=== PATIENT | female | born 1975 | race Caucasian/White ===

== ENCOUNTER 2019-11-12 09:26 | Day surgery (SDC) | payer MEDICARE ==
--- NOTE | 2019-11-07 11:11 | RADIOLOGY REPORT (SQ) ---
EXAM DESCRIPTION: CHEST PA/LATERAL IMAGES COMPLETED DATE/TIME: 11/07/2019 11:01 am REASON FOR STUDY: PRE OP COMPARISON: 03/05/2007 EXAM PARAMETERS: NUMBER OF VIEWS: two views TECHNIQUE: Digital Frontal and Lateral radiographic views of the chest acquired. RADIATION DOSE: NA LIMITATIONS: none FINDINGS: LUNGS AND PLEURA: No opacities, masses or pneumothorax. No pleural effusion. MEDIASTINUM AND HILAR STRUCTURES: No masses or contour abnormalities. HEART AND VASCULAR STRUCTURES: Heart normal size. No evidence for failure. BONES: No acute findings. HARDWARE: None in the chest. OTHER: No other significant finding. IMPRESSION: NO SIGNIFICANT RADIOGRAPHIC FINDING IN THE CHEST. TECHNICAL DOCUMENTATION: JOB ID: [id number] 2010 [employer]- All Rights Reserved Reading location - IP/workstation name: [email or web address]
[2019-11-07 11:13] LABS: HEMATOCRIT 46.4 % (36.0-47.0); HEMOGLOBIN 15.7 g/dL (12.0-15.5); MEAN CORPUSCULAR HEMOGLOBIN 31.9 pg (27.0-33.4); MEAN CORPUSCULAR HGB CONC 33.9 g/dL (32.0-36.0); MEAN CORPUSCULAR VOLUME 94 fl (80-97); PLATELET COUNT 250 10^3/uL (150-450); RED BLOOD COUNT 4.92 10^6/uL (3.72-5.28); RED CELL DISTRIBUTION WIDTH 13.3 % (11.5-14.0); WHITE BLOOD COUNT 12.3 10^3/uL (4.0-10.5)
[~2019-11-12 09:26] MED LIST: ACETAMINOPHEN 325 MG TABLET PO PRN; CLINDAMYCIN 600 MG/D5W RTU 600 MG/50 ML RTUPB IV PRN; LACTATED RINGERS 1000 ML IV PRN; LIDOCAINE 4% CREAM 5 GM TUBE TP PRN
[2019-11-12] MEDS ORDERED: LIDOCAINE 4% CREAM 5 GM TUBE ONE (09:31)
[2019-11-12] MEDS ORDERED: DEXAMETHASONE SOD PHOSPHATE INJ 4 MG/1 ML VIAL ONE (09:48)
[2019-11-12] MEDS ORDERED: ONDANSETRON HCL INJ/PF 4 MG/2 ML SDV ONE (09:48)
[2019-11-12] MEDS ORDERED: CLINDAMYCIN 600 MG/D5W RTU 600 MG/50 ML RTUPB IV ONE (11:53)
--- NOTE | 2019-11-12 12:40 | RADIOLOGY REPORT (SQ) ---
EXAM DESCRIPTION: NM LYMPHATICS/LYMPH GLANDS IMAGES COMPLETED DATE/TIME: 11/12/2019 11:43 am REASON FOR STUDY: BREAST CANCER (RIGHT) C50.911 MALIGNANT NEOPLASM OF UNSP SITE OF RIGHT FEMALE GEORGE A N63.10 UNSPECIFIED LUMP IN THE RIGHT BREAST, UNSPECIFIED BERNIE COMPARISON: None. RADIONUCLIDE AND DOSE: 592 microcuries TC-99m tilmanocept - [employer]. The route of agent administration: Subcutaneous in the skin. TECHNIQUE: The skin of the right breast was prepped in sterile fashion. The radiopharmaceutical was administered in equally divided doses in the around the biopsy scar. LIMITATIONS: None. FINDINGS: Images demonstrate activity at the injection site. IMPRESSION: ADMINISTRATION OF RADIOPHARMACEUTICAL FOR SENTINEL LYMPH NODE EVALUATION. TECHNICAL DOCUMENTATION: JOB ID: [id number] 2010 [employer]- All Rights Reserved Reading location - IP/workstation name: [email or web address]
[2019-11-12] MEDS ORDERED: MICROFIBRILLAR COLLAGEN 1 GM PACK ONE (14:08)
[2019-11-12] MEDS ORDERED: LIDOCAINE 1%/EPINEPHRINE INJ 20 ML VIAL ONE (14:08)
[2019-11-12] MEDS ORDERED: METHYLENE BLUE 50 MG/10 ML AMPULE ONE (14:08)
[2019-11-12] MEDS ORDERED: FENTANYL CITRATE INJ/PF 100 MCG/2 ML AMPUL ONE (14:24)
[2019-11-12] MEDS ORDERED: MIDAZOLAM 2 MG/2 ML INJ ONE (14:24)
[2019-11-12] MEDS ORDERED: PROPOFOL INJ 200 MG/20 ML VIAL IV ONE (14:25)
[2019-11-12] MEDS ORDERED: OXYCODONE-ACETAMINOPHEN 5-325 MG TABLET PO PRN ×3 (15:15→16:16)
[2019-11-12] MEDS ORDERED: PROMETHAZINE HCL INJ 25 MG/1 ML VIAL IV PRN ×2 (15:15)
[2019-11-12] MEDS ORDERED: FENTANYL CITRATE INJ/PF 100 MCG/2 ML AMPUL IV PRN ×3 (15:15)
[2019-11-12] MEDS ORDERED: MEPERIDINE HCL/PF INJ 25 MG/1 ML DISP.SYRIN IV PRN (15:15)
[2019-11-12] MEDS ORDERED: DIPHENHYDRAMINE HCL 50 MG/ML VIAL IV PRN (15:15)
--- NOTE | 2019-11-12 16:16 | Discharge Summary ---
Discharge Summary (SDC) - Discharge Final Diagnosis: right breast cancer Date of Surgery: 11/12/19 Discharge Date: 11/12/19 Condition: Good Treatment or Instructions: [facility] [address], [place] [address] Care Instructions Following Your Lumpectomy Activities: Resume normal activities when you feel comfortable. It is best to remain as active as possible to speed your recovery. It is common to experience some fatigue after surgery and you may find that short naps are helpful. Avoid strenuous activity such as weight lifting, tennis, etc at your surgical site for two weeks. Perform gentle arm exercises daily and do not favor your operative arm to due increased risk of mobility issues postoperatively. No driving for 7 days after surgery. Do not drive if you are taking pain medication other than Tylenol or Ibuprofen. No swimming, tub baths or soaking in a hot tub for 4 weeks. There are no dietary restrictions. Do not smoke as this impairs wound healing. Surgical Site care: You may shower 24 hours after surgery. Remove the drain sponge and tape. Leave skin glue intact, it will peel away on its own. Do not scrub the incision. Pat the area dry with a towel. You do not need to recover the wound although some patients find that they feel more comfortable using a light dressing for a few days to absorb any minimal drainage which may occur. Many patients also find that keeping a dressing around the drain exit site is helpful to absorb any drainage which may leak around the tubing. If you use a dressing in this manner change it at least every day. Do not use heating pad or apply an ice pack to the operative site. You may apply deodorant if you are careful to avoid getting it on the wound itself. Empty the bulbs attached to the drain every 12 hours and measure the fluid output separately from each drain. Please also strip each drain each time you empty it to prevent clogging. Keep a record of the output and bring this record with you each time you come to the office for postoperative care. A drain is ready to be removed when its output is 30 mL per 24 hours per drain for 2 consecutive days. Please call the office to inform our staff that you need to come in for drain removal. Medications: Take Toradol 10mg one pill by mouth every 6 hours as needed for pain. You may taper this medication as you experience less pain. Do not take additional NSAIDs with Toradol. You may take Tylenol to supplement. You may experience constipation after surgery while taking pain medications. If using a narcotic on a regular basis, take a stool softener such as Colace twice a day. It is helpful to stay hydrated by drinking lots of fluids. Walking is also helpful and is good exercise after surgery. If you need extra help, use Milk of Magnesia according to the directions on the package. Follow-up: Call our office at to make a follow-up appointment in 10-14 days. Your doctor will call to discuss the pathology report with you as soon as it is available. Concerns: If you had a sentinel lymph node biopsy with your mastectomy, your urine may have a greenish discoloration. This is normal and will resolve as the blue dye slowly leaves your system. If you notice significant leakage around the drains, this is not normal. The drains may be clogged. Please call our office to come in immediately for the drains to be checked. Some bruising may occur and will go away over time. If you have a fever of 101.5 or greater, chills, redness at the incision site, excessive drainage from your wound or severe pain not relieved by pain medication, call your doctor. A physician is available 24 hours a day 7 days a week in addition to regular office hours. If problems arise after normal office hours please call the hospital at . Please call if you have any questions or concerns. Prescriptions: Ketorolac Tromethamine [Toradol 10 mg Tablet] 10 mg PO Q6HP PRN #20 tablet PRN Reason: Referrals: [facility] WARD MD [Primary Care Provider] - Discharge Diet: As Tolerated Discharge Activity: Activity As Tolerated, Walk Frequently Report the Following to Your Physician Immediately: Increase in Pain, Fever over 101 Degrees, Unusual Bleeding, Redness, Swelling, Warmth, Increased Soreness, Drainage-Foul Smelling, Large Clots
--- NOTE | 2019-11-12 16:34 | Operative Report ---
Operative Report DATE OF SURGERY: 11/12/19 PREOPERATIVE DIAGNOSIS: Invasive ductal carcinoma right breast POSTOPERATIVE DIAGNOSIS: Same OPERATION: 1. Right breast lumpectomy using ultrasound as a guide. 2. [place] lymph node biopsy right axilla x2 SURGEON: MAGNOLIA CEVALLOS 1ST AUTOMATION APPLICATION ENGINEER: CINTHIA WILKINSON ANESTHESIA: GA TISSUE REMOVED OR ALTERED: Right breast lump; right axillary lymph nodes x2 COMPLICATIONS: None ESTIMATED BLOOD LOSS: 10 cc INTRAOPERATIVE FINDINGS: Below PROCEDURE: Patient seen in preop holding area then taken to the main operating room where general anesthesia was induced. Right arm was abducted right breast exposed. The right breast was now prepped with alcohol, and 2 and half cc of full- strength methylene blue was injected into the areolar border, 10 o'clock position, intradermally. The right breast was massaged, the right breast and axilla were prepped and draped sterile fashion Surgical plan surgical timeout were conducted. Findings are significant for a palpable mass in the upper outer quadrant of the right breast. It appears to have enlarged over the last several weeks. Focused ultrasound demonstrated the 2-1/2 to 3 cm mass with a clip marker contained therein. Skin was anesthetized 1% lidocaine. A curvilinear incision was made approximately 7 cm long over the upper outer quadrant of the right breast. A generous lumpectomy specimen was obtained using electrocautery, and ultrasound as a guide. Breast was removed from the right breast marked with a long suture in the lateral position short suture in the superior position and sent to pathology. It was examined by Dr. Giles who inked the specimen , sliced it and determined that the margins were clear. We completed sentinel lymph node biopsy through the same incision. 2 sentinel lymph nodes were harvested in the low axilla first hot not blue in vivo count 2301, ex vivo count 256. The second sentinel lymph node was hot and blue with an in vivo count of 5865 and an ex vivo count of 10,107. Background counts were negligible. A large drain was placed through the inferior skin flap trimmed to the appropriate length tucked into the biopsy cavity. It was secured to the skin with 2-0 Prolene suture. Wound closed with 2-0 Vicryl and skin glue. Patient tolerated the procedure well, extubated, taken recovery in stable condition. The physician social science research assistant, Ms. Franco, provided assistance during this case by: Assisting by retracting tissue, instillation of local anesthesia and closure of skin incisions.
[2019-11-12] MEDS: FENTANYL CITRATE INJ/PF 100 MCG/2 ML AMPUL ONE ×2 (16:35→16:40)
[2019-11-12] MEDS ORDERED: OXYCODONE-ACETAMINOPHEN 5-325 MG TABLET ONE (17:13)
[2019-11-12 18:30] VITALS: BP 120/82
== END 2019-11-12 18:20 | disposition home or self-care (01) ==
LOC: OROUT 09:26
PROVIDERS: ATTEND Surgery
DX: C50.411 Malignant neoplasm of upper-outer quadrant of right female breast (principal); Z17.0 Estrogen receptor positive status [ER+]; N63.10 Unspecified lump in the right breast, unspecified quadrant; E78.00 Pure hypercholesterolemia, unspecified; Z88.0 Allergy status to penicillin; Z88.2 Allergy status to sulfonamides; Z88.8 Allergy status to other drugs, medicaments and biological substances; E11.9 Type 2 diabetes mellitus without complications; Z79.899 Other long term (current) drug therapy; Z87.820 Personal history of traumatic brain injury; Z03.818 Encounter for observation for suspected exposure to other biological agents ruled out
CPT/HCPCS: 19301; 38500; 36415; 82962; 85027; 88342 ×2; 88341 ×2; 88307 ×2; 71046; 78195; 01610; U0003; A9520; J2250; J1100; J3010; J3490 ×2; A9270; J2405; J2704; Q9968; C9803; 1610; 87635

== ENCOUNTER → 2019-12-30 | Outpatient (CLI) | payer MEDICAID, MEDICARE ==
--- NOTE | 2019-12-30 12:20 | RADIOLOGY REPORT (SQ) ---
EXAM DESCRIPTION: VENOUS UNILATERAL LOWER IMAGES COMPLETED DATE/TIME: 12/30/2019 9:33 am REASON FOR STUDY: LLE SWELLING R22.42 LOCALIZED SWELLING, MASS AND LUMP, LEFT LOWER LIMB COMPARISON: None. TECHNIQUE: Dynamic and static moody scale and color images acquired of the left leg venous system. Se lected spectral images acquired with additional compression and augmentation maneuvers. The contralat eral common femoral vein and saphenofemoral junction were also imaged. Images stored on PACS. LIMITATIONS: None. FINDINGS: COMMON FEMORAL: Normal phasicity, compression and augmentation. No visualized echogenic ma terial on moody scale. No defects on color images. FEMORAL: Normal compression and augmentation. No visualized echogenic material on moody scale. No defe cts on color images. POPLITEAL: Normal compression, augmentation. No visualized echogenic material on moody scale. No defec ts on color images. CALF VESSELS: Normal compression, augmentation. No visualized echogenic material on moody scale. No de fects on color images. GSV and SSV: Normal compression, augmentation. No visualized echogenic material on moody scale. No def ects on color images. ANY DEEP VENOUS INSUFFICIENCY: Not evaluated. ANY EVIDENCE OF POPLITEAL CYST: No. OTHER: No other significant finding. CONTRALATERAL COMMON FEMORAL VEIN AND SAPHENOFEMORAL JUNCTION: Normal phasicity, compression and augmentation. No visualized echogenic material on moody scale. No de fects on color images. IMPRESSION: NO EVIDENCE DVT OR SVT IN THE LEFT LEG. TECHNICAL DOCUMENTATION: JOB ID: [id number] 2010 [employer]- All Rights Reserved Reading location - IP/workstation name: [email or web address]
== END ==
LOC: SP 08:43
PROVIDERS: ATTEND Internal Medicine
DX: R22.42 Localized swelling, mass and lump, left lower limb (principal)
CPT/HCPCS: 93971